=== PATIENT | male | born 1990 | race Caucasian/White ===

== ENCOUNTER 2025-02-20 15:09 | Emergency (ER) | payer SELFPAY ==
[~2025-02-20] VITALS: Ht 177.8 cm; Wt 86.0 kg
[2025-02-20 15:54] VITALS: O2SAT 99
[2025-02-20] MEDS: KETOROLAC 15MG/ML VIAL IM ONE (18:06)
[2025-02-20 18:34] LABS: CLARITY URINE CLEAR (CLEAR); COLOR URINE YELLOW (YELLOW); GLUCOSE URINE NEGATIVE (NEGATIVE); KETONES URINE NEGATIVE (NEGATIVE); OCCULT BLOOD URINE NEGATIVE (NEGATIVE); PH URINE 6.0 (4.5-8.0); PROTEIN URINE NEGATIVE (NEGATIVE); SPECIFIC GRAVITY URINE 1.006 (1.005-1.030)
[2025-02-20 18:35] LABS: LEUKOCYTE ESTERASE URINE NEGATIVE (NEGATIVE); NITRITE URINE POSITIVE (NEGATIVE); UROBILINOGEN URINE 1.0 E.U./dL (0.2-1.0)
[2025-02-20 18:45] LABS: BACTERIA URINE TRACE; RBC URINE NONE SEEN /hpf (0-2); SQUAMOUS EPITHELIAL CELL URINE RARE /lpf (RARE/1+); WBC URINE NONE SEEN /hpf (0-2)
[2025-02-20 20:09] LABS: BASOPHILS % 0.4 % (0.0-2.0); EOSINOPHILS % 4.9 % (0.0-5.0); HEMATOCRIT. 43.9 % (42.0-52.0); HEMOGLOBIN. 14.6 g/dL (14.0-18.0); LYMPHOCYTES % 29.4 % (20.0-50.0); MEAN PLATELET VOLUME 8.9 fl (7.4-10.4); MONOCYTES % 6.3 % (2.0-8.0); NEUTROPHILS % 59.0 % (40.0-76.0); PLATELET 198 x1000/uL (130-400); RED BLOOD CELL COUNT 4.75 mill/uL (4.7-6.1); RED CELL DISTRIBUTION WIDTH 12.9 % (11.6-14.6)
[2025-02-20 20:22] LABS: CREATININE 1.1 mg/dL (0.6-1.3)
[2025-02-20 20:23] LABS: UREA NITROGEN BLOOD 12 mg/dL (9-23)
[2025-02-20 20:24] LABS: ASPARTATE AMINOTRANSFERASE 22 IU/L (<34)
[2025-02-20 20:25] LABS: BILIRUBIN DIRECT 0.1 mg/dL (<=3.0); BILIRUBIN TOTAL 0.4 mg/dL (0.1-1.0); PROTEIN TOTAL 7.3 g/dL (6.0-8.3)
[2025-02-20] MEDS ORDERED: CYCL10TA21 MT (20:49)
[2025-02-20] MEDS ORDERED: LIDO-53 TP (20:49)
[2025-02-20] MEDS ORDERED: IBUP-1455 MT (20:49)
[2025-02-20 21:03] VITALS: BP 102/64; PULSE 64; RESP 16; TEMP 36.8; O2SAT 100
== END 2025-02-20 21:03 | disposition home or self-care (01) ==
LOC: ER 15:09
DX: M54.50 Low back pain, unspecified (principal); R10.84 Generalized abdominal pain
CPT/HCPCS: 80076; 80048; 81003; 83690; 85025; 36415; 71045; 74176; 96372; 99285; J1885; Z7610